=== PATIENT | female | born 1965 | race Caucasian/White ===

== ENCOUNTER 2017-02-05 11:57 | Observation (INO) | payer OTHER ==
[~2017-02-05] VITALS: Ht 165.1 cm; Wt 68.0 kg
[~2017-02-05 11:57] MED LIST: ALBU6.7H INH; ALBUTEROL INHALER INH; COQ1100C PO; FISH100020 PO; LEVO100T4 PO; RANI150 PO; TRAM50 PO
[2017-02-05 12:03] VITALS: BP 194/89; PULSE 94; RESP 22; TEMP 97.9; O2SAT 95
[2017-02-05 12:23] VITALS: BP 192/93; PULSE 80; RESP 18; O2SAT 98
[2017-02-05] MEDS ORDERED: SODIUM CHLOR 0.9% 1000 ML INJ 1,000 ML IV ONE (12:27)
[2017-02-05] MEDS ORDERED: SODIUM CHLORIDE 0.9% FLUSH 10 ML FLUSH IVF PRN (12:30)
[2017-02-05] MEDS ORDERED: MECLIZINE HCL 25 MG TAB PO ONE (12:30)
[2017-02-05 12:33] VITALS: BP_SYST 149; BP_SYST 152; BP_SYST 153; BP_DIAS 68; BP_DIAS 71; BP_DIAS 76; RESP 17; RESP 22; O2SAT 96
--- NOTE | 2017-02-05 12:39 | PD ---
HPI Chief Complaint: Dizziness Time Seen by Provider: 12:11 Travel History International Travel<30 days: No Contact w/Intl Traveler<30days: No Traveled to known affect area: No History of Present Illness HPI 52-year-old female presents to the emergency department for evaluation of dizziness, occipital headache. Patient states that she woke up this morning feeling fine. She drank her coffee and that started to feel dizzy around 9:30 this morning. Patient states that her daughter dropped off her grandson for her to watch him. She was driving her boyfriend to work when she felt very dizzy. She states that she pulled over and then felt slightly better and took her boyfriend to work and came home. The dizziness reoccurred. She states that she looked up some vertigo maneuvers and attempted these. She states the dizziness felt much better so she assumed it was vertigo. That time, she started to drive to [employer] to see another daughter. She felt okay at that time. However, the dizziness reoccurred. She states she fell unable to drive to the dizziness. Therefore, her bosses boyfriend brought him to her who brought her to the emergency department. The patient states that she is unsure if she could be having an anxiety attack, stroke, hyperthyroidism. She does report history of hypothyroidism and is on levothyroxine. She states that when she was on too much medication, she became real shaky which she feels at that time. However, the dizziness is new for her. She denies any history of stroke. She does have history of hyperlipidemia and is on Lipitor, hypothyroidism, current tobacco smoker. She denies a history of hypertension, ACS, CVA. Patient states that the symptoms were worse with movement, but now persistent even when laying down. She states the headache is 3/10 and do for her. She does state that she had 5-6 alcoholic drinks last night, but this is not abnormal for her when she is off of work. Patient is currently an [employer] WORKER. Patient states that while waiting for her boyfriend, she had an episode where her right leg and arm felt "funny", but his has resolved. Patient denies any chest pain or shortness of breath. No abdominal pain. No nausea, vomiting, diarrhea, constipation. PFSH Past Medical History Asthma: Yes Cancer: No Cardiac Catheterization: Yes Cardiovascular Problems: Yes (CHEST PAIN) High Cholesterol: Yes Diabetes: Yes Patient Takes Glucophage: No Diminished Hearing: No GERD: Yes Hepatitis: No Hiatal Hernia: Yes (GERD) Herniated Disk: Yes Hypertension: Yes Medical other: Yes (ARTHRITIS) Respiratory: Yes (ASTHMA) Shingles: Yes Thyroid Disease: Yes ?: Not Tubal Ligation: Yes Past Surgical History Abdominal Surgery: Yes (LEFT FEMORAL HERNIA REPAIR) Coronary Artery Bypass Graft: No Gynecologic Surgery: Yes (CONE BIOPSY; TUBAL LIGATION) Hysterectomy: Yes Pacemaker: No Thoracic Surgery: Yes (BREAST REDUCTION) Tonsillectomy: Yes (ADNOIDECTOMY) Other Surgery: Yes (BILAT BREAST REDUCTION) Social History Alcohol Use: Yes Tobacco Use: Yes Substance Use: No Allergies-Medications (Allergen,Severity, Reaction): Coded Allergies: Sulfa (Sulfonamide Antibiotics) (Unverified Allergy, Severe, 02/05/17) Reported Meds & Prescriptions Reported Meds & Active Scripts Active Ultram (Tramadol HCl) 50 Mg Tab 50 Mg PO Q4HPRN FOR PAIN Reported Proventil Hfa (Albuterol Sulfate) 6.7 Gm Aero 2 Puff INH Q4HPRN * SHAKE WELL BEFORE USE * Coq10 (Coenzyme Q10 (Ubidecarenone)) 100 Mg Cap 100 Mg PO DAILY Fish Oil (Nelson-3 Fatty Acids) 1,000 Mg Cap 1,000 Mg PO DAILY [Albuterol Inhaler] 2 Puff INH DIRECTED Zantac (Ranitidine HCl) 150 Mg Tab 150 Mg PO DIRECTED Levothyroxine Sodium (Generic) (Levothyroxine Sodium) 100 Mcg Tab 100 Mcg PO DAILY Review of Systems Except as stated in HPI: all other systems reviewed are Neg Physical Exam Narrative GENERAL: Well-nourished, well-developed female patient, afebrile. SKIN: Focused skin assessment warm/dry. HEAD: Normocephalic. Atraumatic. EYES: No scleral icterus. No injection or drainage. PERRLA. EOM intact. ENT: Mucosa pink and moist. No erythema or exudates. No uvular edema. No uvular , palatal, or tonsillar deviation. Airway patent. Nasal turbinates appear normal without nasal blood, purulent drainage or septal hematoma. Bilateral tympanic membranes are clear without erythema or perforation. NECK: Supple, trachea midline. No JVD or lymphadenopathy. CARDIOVASCULAR: Regular rate and rhythm without murmurs, gallops, or rubs. Bilateral radial and pedal pulses are 2+. RESPIRATORY: Breath sounds equal bilaterally. No accessory muscle use. Lungs sounds are clear to auscultation. GASTROINTESTINAL: Abdomen soft, non-tender, nondistended. MUSCULOSKELETAL: No cyanosis, or edema. Bilateral upper and lower extremity strength 5/5. All extremities are neurovascularly intact. BACK: Nontender without obvious deformity. No CVA tenderness. Data Data Last Documented VS Vital Signs Date Time Temp Pulse Resp B/P (MAP) Pulse Ox O2 Delivery O2 Flow Rate FiO2 02/05/17 12:33 (126) 96 Room Air 02/05/17 12:33 80 22 81 17 85 17 02/05/17 12:03 97.9 Orders Orders Electrocardiogram (02/05/17 12:27) Complete Blood Count With Diff (02/05/17 12:27) Comprehensive Metabolic Panel (02/05/17 12:27) Magnesium (Mg) (02/05/17 12:27) Ckmb (Isoenzyme) Profile (02/05/17 12:27) Troponin I (02/05/17 12:27) Act Partial Throm Time (Ptt) (02/05/17 12:27) Prothrombin Time / Inr (Pt) (02/05/17 12:27) Urinalysis - C+S If Indicated (02/05/17 12:27) Chest, Single Ap (02/05/17 12:27) Ct Brain W/O Iv Contrast(Rout) (02/05/17 12:27) Blood Glucose (02/05/17 12:27) Ecg Monitoring (02/05/17 12:27) Iv Access Insert/Monitor (02/05/17 12:27) Oximetry (02/05/17 12:27) Meclizine (Antivert) (02/05/17 12:30) Sodium Chloride 0.9% Flush (Ns Flush) (02/05/17 12:30) Sodium Chlor 0.9% 1000 Ml Inj (Ns 1000 M (02/05/17 12:27) Orthostatic Vital Signs (02/05/17 12:27) Thyroid Stimulating Hormone (02/05/17 12:27) Alcohol (Ethanol) (02/05/17 12:48) Mri Brain W&W/O Contrast (02/05/17 ) Mra Brain W/O Contrast (Cow) (02/05/17 ) Labs Laboratory Tests Test 02/05/17 12:30 White Blood Count 5.9 TH/MM3 Red Blood Count 4.17 MIL/MM3 Hemoglobin 13.4 GM/DL Hematocrit 38.8 % Mean Corpuscular Volume 93.1 FL Mean Corpuscular Hemoglobin 32.2 PG Mean Corpuscular Hemoglobin Concent 34.6 % Red Cell Distribution Width 13.1 % Platelet Count 283 TH/MM3 Mean Platelet Volume 6.8 FL Neutrophils (%) (Auto) 50.5 % Lymphocytes (%) (Auto) 32.8 % Monocytes (%) (Auto) 8.6 % Eosinophils (%) (Auto) 7.5 % Basophils (%) (Auto) 0.6 % Neutrophils # (Auto) 3.0 TH/MM3 Lymphocytes # (Auto) 1.9 TH/MM3 Monocytes # (Auto) 0.5 TH/MM3 Eosinophils # (Auto) 0.4 TH/MM3 Basophils # (Auto) 0.0 TH/MM3 CBC Comment DIFF FINAL Differential Comment Prothrombin Time 10.1 SEC Prothromb Time International Ratio 0.9 RATIO Activated Partial Thromboplast Time 27.6 SEC Blood Urea Nitrogen 15 MG/DL Creatinine 0.67 MG/DL Random Glucose 89 MG/DL Total Protein 7.4 GM/DL Albumin 3.9 GM/DL Calcium Level 9.1 MG/DL Magnesium Level 2.2 MG/DL Alkaline Phosphatase 84 U/L Aspartate Amino Transf (AST/SGOT) 17 U/L Alanine Aminotransferase (ALT/SGPT) 20 U/L Total Bilirubin 0.2 MG/DL Sodium Level 137 MEQ/L Potassium Level 4.0 MEQ/L Chloride Level 103 MEQ/L Carbon Dioxide Level 27.3 MEQ/L Anion Gap 7 MEQ/L Estimat Glomerular Filtration Rate 92 ML/MIN Total Creatine Kinase 73 U/L Troponin I LESS THAN 0.02 NG/ML Thyroid Stimulating Hormone 3rd Gen 4.670 uIU/ML Ethyl Alcohol Level LESS THAN 3 MG/DL MDM Medical Decision Making Medical Screen Exam Complete: Yes Emergency Medical Condition: Yes Medical Record Reviewed: Yes Interpretation(s) Last Impressions Head CT 02/05/17 1227 Signed Impressions: Service Date/Time: January 12:46 - CONCLUSION: Normal examination for a patient of this age. Idris Maguire MD Chest X-Ray 02/05/17 1227 Signed Impressions: Service Date/Time: January 13:11 - CONCLUSION: No acute disease. Idris Maguire MD Differential Diagnosis Vertigo versus intracranial abnormality versus CVA versus TIA versus electrolyte abnormality versus thyroid disease versus dehydration versus ACS Narrative Course 52-year-old female presents to the emergency department for evaluation of dizziness, headache, resolved episode of right arm and leg feeling "funny". Neurological exam shows no focal deficits. NIH stroke scale is 0. EKG, CBC, CMP, CK, troponin, magnesium, TSH, PTT, PT/INR, UA are ordered and pending. Chest x-ray and CT of the brain are ordered and pending. Orthostatic vital signs are ordered and pending. Patient is given normal saline 1 L IV bolus, meclizine 25 mg by mouth. EKG shows SR, HR 81, no acute ST changes. CBC shows no acute abnormalities. CMP shows no acute abnormality. CK is 73. Troponin is less than 0.02. Magnesium is 2.2. TSH is 4.670. Coags are unremarkable. UA is pending. Chest x-ray shows no acute disease. CT of the brain is unremarkable Orthostatic VS is negative for orthostatic hypotension. Patient took 2 hiram-seltzer this morning which contains 325 ASA each. I discussed the case with my attending physician, Dr. Tidwell, who recommends 23 hour observation. MRI of the brain with and without contrast and MRA of the brain are ordered and pending. Dr. Lopez accepted admission. Diagnosis Primary Impression: Dizziness Additional Impression: Headache Qualified Codes: R51 - Headache Admitting Information Admitting Physician Requests: Observation CarloDuaneCidna TITA Feb 05, 2017 12:39
[2017-02-05 12:52] LABS: BASOPHIL % 0.6 % (0.0-2.0); EOSINOPHIL # 0.4 TH/MM3 (0-0.4); EOSINOPHIL % 7.5 % (0.0-4.0); HEMATOCRIT 38.8 % (35.0-46.0); HEMO FLAGS DIFF FINAL; LYMPH % 32.8 % (9.0-44.0); LYMPHOCYTE # 1.9 TH/MM3 (1.0-4.8); MEAN CELL VOLUME 93.1 FL (80.0-100.0); MEAN CORPUSCULAR HEMOGLOBIN 32.2 PG (27.0-34.0); MEAN CORPUSCULAR HGB CONC 34.6 % (32.0-36.0); MONO % 8.6 % (0.0-8.0); NEUT % 50.5 % (16.0-70.0); PLATELET COUNT 283 TH/MM3 (150-450); RED BLOOD COUNT 4.17 MIL/MM3 (4.00-5.30); RED CELL DISTRIBUTION WIDTH 13.1 % (11.6-17.2); WHITE BLOOD COUNT 5.9 TH/MM3 (4.0-11.0)
[2017-02-05 13:01] LABS: APTT (PATIENT) 27.6 SEC (24.3-30.1); INTERNATIONAL NORMALIZED RATIO 0.9 RATIO; PROTHROMBIN TIME - PATIENT 10.1 SEC (9.8-11.6)
--- NOTE | 2017-02-05 13:11 | RADRPT ---
EXAM DATE/TIME: 02/05/2017 12:46 [facility] COMPARISON: No previous studies available for comparison. INDICATIONS : Severe dizziness today RADIATION DOSE: 56.83 CTDIvol (mGy) MEDICAL HISTORY : Hypertension. Cardiovascular disease Diabetes SURGICAL HISTORY : Hysterectomy. ENCOUNTER: Initial ACUITY: 1 day PAIN SCALE: 0/10 LOCATION: cranial TECHNIQUE: Multiple contiguous axial images were obtained of the head. Using automated exposure control and adj ustment of the mA and/or kV according to patient size, radiation dose was kept as low as reasonably a chievable to obtain optimal diagnostic quality images. DICOM format image data is available electro nically for review and comparison. FINDINGS: CEREBRUM: The ventricles are normal for age. No evidence of midline shift, mass lesion, hemorrhage or acute in farction. No extra-axial fluid collections are seen. POSTERIOR FOSSA: The cerebellum and brainstem are intact. The 4th ventricle is midline. The cerebellopontine angle i s unremarkable. EXTRACRANIAL: The visualized portion of the orbits is intact. SKULL: The calvaria is intact. No evidence of skull fracture. CONCLUSION: Normal examination for a patient of this age. Idris Maguire MD on February 05, 2017 at 13:09 Board Certified Radiologist. This report was verified electronically.
--- NOTE | 2017-02-05 13:16 | RADRPT ---
EXAM DATE/TIME: 02/05/2017 13:11 [facility] COMPARISON: No previous studies available for comparison. INDICATIONS : Dizzyness MEDICAL HISTORY : asthma SURGICAL HISTORY : None. ENCOUNTER: Initial ACUITY: 1 day PAIN SCORE: 0/10 LOCATION: Bilateral chest FINDINGS: A single view of the chest demonstrates the lungs to be symmetrically aerated without evidence of mas s, infiltrate or effusion. There is some hyperaeration of both lung garcía. The cardiomediastinal con tours are unremarkable. Osseous structures are intact. CONCLUSION: No acute disease. Idris Maguire MD on February 05, 2017 at 13:15 Board Certified Radiologist. This report was verified electronically.
[2017-02-05 13:19] LABS: ANION GAP 7 MEQ/L (5-15); BICARBONATE 27.3 MEQ/L (21.0-32.0); BLOOD UREA NITROGEN 15 MG/DL (7-18); CHLORIDE 103 MEQ/L (98-107); GLOMERULAR FILTRATION RATE 92 ML/MIN (>89); MAGNESIUM 2.2 MG/DL (1.5-2.5); SODIUM (NA) 137 MEQ/L (136-145)
[2017-02-05 13:21] LABS: ALT (GPT) 20 U/L (10-53)
[2017-02-05 13:30] LABS: ALKALINE PHOSPHATASE 84 U/L (45-117); AST (GOT) 17 U/L (15-37); CREATINE KINASE 73 U/L (26-192); TOTAL BILIRUBIN ADULT 0.2 MG/DL (0.2-1.0)
[2017-02-05 14:10] LABS: BLOOD, URINE NEG (NEG); COMMENT (UR) CULT NOT INDICATED; CULTURE IF INDICATED CULT NOT INDICATED; GLUCOSE,URINE NEG (NEG); KETONE, URINE NEG (NEG); NITRITE,URINE NEG (NEG); URINE COLOR LIGHT-YELLOW (YELLW/STRAW)
--- NOTE | 2017-02-05 14:40 | RADRPT ---
EXAM DATE/TIME: 02/05/2017 14:15 [facility] COMPARISON: No previous studies available for comparison. INDICATIONS : CVA. Right sided weakness. MEDICAL HISTORY : Hypothyroidism. Asthma. SURGICAL HISTORY : Hysterectomy. Tonsillectomy. Breast reduction and hernia repair. ENCOUNTER: Initial ACUITY: 1 day PAIN SCORE: 0/10 LOCATION: Head. Please note a normal MRA of the brain does not entirely exclude the possibility of a small aneurysm, nor the possibility of distal intracranial vessel disease. TECHNIQUE: 3D time of flight MRA was performed. Source images, multiplanar STS MIP, and 3D volume MIP reconstru ctions were reviewed. FINDINGS: Anterior circulation: Distal intracranial internal carotid arteries are patent with flow extending to the middle and anteri or cerebral arteries. There is no evidence for aneurysm, vessel truncation or stenosis, and no eviden ce for vascular malformation. Posterior circulation: Symmetric distal vertebral arteries with flow extending to basilar artery. There is no evidence for aneurysm, vessel truncation or stenosis, and no evidence for vascular malformation. CONCLUSION: 1. Unremarkable MRA examination of the brain. Specifically, no evidence for large vessel occlusion, s ignificant intracranial stenosis or aneurysm. Jovon Arriaza MD on February 05, 2017 at 14:35 Board Certified Radiologist. This report was verified electronically.
--- NOTE | 2017-02-05 14:46 | RADRPT ---
EXAM DATE/TIME: 02/05/2017 14:15 [facility] COMPARISON: CT BRAIN W/O CONTRAST, February 05, 2017, 12:46. INDICATIONS : CVA. Right sided weakness. MEDICAL HISTORY : Asthma. SURGICAL HISTORY : Hysterectomy. Tonsillectomy. Breast reduction. ENCOUNTER: Initial ACUITY: 1 day PAIN SCORE: 0/10 LOCATION: Head. TECHNIQUE: Multiplanar, multisequence MRI of the brain was performed without contrast. FINDINGS: CEREBRUM: The ventricles are normal. No evidence of midline shift, mass lesion, hemorrhage or acute infarction . No extraaxial fluid collections are seen. The pituitary gland and suprasellar cistern are normal in configuration. WHITE MATTER: No significant signal abnormalities are seen in the white matter. POSTERIOR FOSSA: The cerebellum and brainstem demonstrate no abnormality. The 4th ventricle is midline. The cerebello pontine angle is unremarkable. The cerebellar tonsils are normal in position. DIFFUSION IMAGING: No focal areas of restricted diffusion are seen. No evidence of acute infarction. EXTRACRANIAL: The visualized portions of the orbits and paranasal sinuses are unremarkable. CONCLUSION: Negative brain MRI without contrast. No abnormality is identified to explain the clinical symptoms an d there are no findings to indicate recent ischemia. Adonay Harvey MD on February 05, 2017 at 14:42 Board Certified Radiologist. This report was verified electronically.
--- NOTE | 2017-02-05 14:54 | HHI.HP ---
HPI Service [facility] Hospitalists Primary Care Physician Dorota Duff MD Admission Diagnosis dizziness, acute headache Chief Complaint: Dizziness Travel History International Travel<30 Days: No Contact w/Intl Traveler <30 Da: No Traveled to Known Affected Are: No History of Present Illness Ms. Shanks is a pleasant 52 y/o WF with hyperlipidemia, hypothyroidism, B12 deficiency, and GERD. Pt presented to the ED at [facility] on 02/05/17 with complaints of dizziness/lightheadedness. Pt reports that this morning she woke up feeling normal but then around 9:30Am she had a sensation like she felt lightheaded or "altered" and had a fullness sensation in the back of her head. She reports that she didn't feel dizziness like the room was spinning and there was no listing to one side. She felt a fullness sensation in the back of her neck and felt palpitations. The sensation lasted about an hour to an hour and a half. She tried doing some Tita maneuvers on her own at home which didn't seem to help much. She then tried to just relax and lay quietly and then had some relief. She left at 11AM to drive to [facility] to see her daughter for her birthday and while driving she felt this same sensation and pulled over into a gas station. She felt a slight tingling in the right side of her face and tingling in the right arm but there was no noted facial drooping. The tingling sensation lasted about 5 mins and then resolved. She also felt like she had a "thick tongue" and was having some sort of difficulty with talking. Pt waited at the gas station until her boyfriend arrived who drove her to the ED for further evaluation. In the ED she had a Head CT which was negative. Her labs and UA were essentially unrevealing. Her TSH was noted to be elevated at 4.670. Pts BP was significantly elevated in the ED but states that it is not normally that high. She feels the elevation was related to anxiety upon arrival to the ED. The BP has improved. Pt was given IVF and a dose of Meclizine in the ED. She is feeling overall better. Pt is being admitted for 24 hour observation and further workup to r/o TIA/CVA. Review of Systems Constitutional: COMPLAINS OF: Dizziness, DENIES: Diaphoretic episodes, Fever, Chills Eyes: DENIES: Vision loss Ears, nose, mouth, throat: DENIES: Hearing loss, Nasal discharge, Throat pain, Hoarseness, Running Nose Respiratory: DENIES: Shortness of breath Cardiovascular: COMPLAINS OF: Palpitations, DENIES: Chest pain Gastrointestinal: DENIES: Abdominal pain, Constipation, Diarrhea, Nausea, Vomiting Genitourinary: DENIES: Urinary incontinence, Urgency, Hematuria Musculoskeletal: COMPLAINS OF: Neck pain Integumentary: DENIES: Rash Neurologic: COMPLAINS OF: Paresthesias, Speech Problems, DENIES: Localized weakness, Poor Balance Psychiatric: DENIES: Confusion Past Family Social History Past Medical History Hypothyroidism Hyperlipidemia Hx of PVCs Asthma, rarely has to use inhalers GERD Hiatal hernia Hx of steroid induced psychosis B12 deficiency Past Surgical History IMELDA at L5-S1 Tonsillectomy Bilateral breast reduction Femoral hernia repair Tubal ligation Hysterectomy Reported Medications -Proventil Hfa (Albuterol Sulfate) 6.7 Gm Aero 2 Puff INH Q4HPRN * SHAKE WELL BEFORE USE * -Coq10 10 Mg PO DAILY -Fish Oil 1,000 Mg PO DAILY -Zantac 150 Mg PO DAILY NEEDED -Levothyroxine Sodium 100 Mcg PO DAILY on Mon,Wed,Th,Fri,Thu and 88mcg on e and Sat -B12 2500Mcg SL DAILY -Lipitor 10Mg PO -- Allergies: Coded Allergies: Sulfa (Sulfonamide Antibiotics) (Unverified Allergy, Severe, 02/05/17) Family History Mother with hx of CVA in her early 60's and has had CEA Father with hx of CAD and CT at age 54 Social History (+)Tobacco use, smoked for 10 quit for 16 years, smoke for 3, quit for 3, and started back recently, smoking on average (+)Alcohol use, drinks on her days off work, mixed drinks, pt reports she is a "moderate drinker" Denies any illicit drug use 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 HEENT: Atraumatic. Normocephalic. No temporal or scalp tenderness.No scleral icterus. Airway patent. NECK: Trachea midline, supple, nontender. CARDIO: Regular. RESP: CTA bilaterally. No wheezes, rales, or rhonchi. ABD: +BS, soft, non-tender, nondistended. EXT: Extremities without clubbing, cyanosis, or edema. NEURO: Awake and alert. Motor and sensory grossly within normal limits. Normal speech. Laboratory Laboratory Tests Test 02/05/17 12:30 02/05/17 13:20 White Blood Count 5.9 Red Blood Count 4.17 Hemoglobin 13.4 Hematocrit 38.8 Mean Corpuscular Volume 93.1 Mean Corpuscular Hemoglobin 32.2 Mean Corpuscular Hemoglobin Concent 34.6 Red Cell Distribution Width 13.1 Platelet Count 283 Mean Platelet Volume 6.8 Neutrophils (%) (Auto) 50.5 Lymphocytes (%) (Auto) 32.8 Monocytes (%) (Auto) 8.6 Eosinophils (%) (Auto) 7.5 Basophils (%) (Auto) 0.6 Neutrophils # (Auto) 3.0 Lymphocytes # (Auto) 1.9 Monocytes # (Auto) 0.5 Eosinophils # (Auto) 0.4 Basophils # (Auto) 0.0 CBC Comment DIFF FINAL Differential Comment Prothrombin Time 10.1 Prothromb Time International Ratio 0.9 Activated Partial Thromboplast Time 27.6 Blood Urea Nitrogen 15 Creatinine 0.67 Random Glucose 89 Total Protein 7.4 Albumin 3.9 Calcium Level 9.1 Magnesium Level 2.2 Alkaline Phosphatase 84 Aspartate Amino Transf (AST/SGOT) 17 Alanine Aminotransferase (ALT/SGPT) 20 Total Bilirubin 0.2 Sodium Level 137 Potassium Level 4.0 Chloride Level 103 Carbon Dioxide Level 27.3 Anion Gap 7 Estimat Glomerular Filtration Rate 92 Total Creatine Kinase 73 Troponin I LESS THAN 0.02 Thyroid Stimulating Hormone 3rd Gen 4.670 Ethyl Alcohol Level LESS THAN 3 Urine Color LIGHT-YELLOW Urine Turbidity CLEAR Urine pH 7.0 Urine Specific [place] 1.010 Urine Protein NEG Urine Glucose (UA) NEG Urine Ketones NEG Urine Occult Blood NEG Urine Nitrite NEG Urine Bilirubin NEG Urine Urobilinogen LESS THAN 2.0 Urine Leukocyte Esterase NEG Urine RBC 1 Urine WBC 1 Microscopic Urinalysis Comment CULT NOT INDICATED Result Diagram: 02/05/17 1230 02/05/17 1230 Imaging Last Impressions Head CT 02/05/17 1227 Signed Impressions: Service Date/Time: January 12:46 - CONCLUSION: Normal examination for a patient of this age. Idris Maguire MD Chest X-Ray 02/05/17 1227 Signed Impressions: Service Date/Time: January 13:11 - CONCLUSION: No acute disease. Idris Maguire MD Head Magnetic Resonance Angiography 02/05/17 0000 Signed Impressions: Service Date/Time: , February 05, 2017 14:15 - CONCLUSION: 1. Unremarkable MRA examination of the brain. Specifically, no evidence for large vessel occlusion, significant intracranial stenosis or aneurysm. Jovon Arriaza MD Brain MRI 02/05/17 0000 Signed Impressions: Service Date/Time: January 14:15 - CONCLUSION: Negative brain MRI without contrast. No abnormality is identified to explain the clinical symptoms and there are no findings to indicate recent ischemia. Adonay Harvey MD Septic Shock Reassessment Heart: Regular rate and rhythm Lungs: Clear Skin: Warm Caprini VTE Risk Assessment Caprini VTE Risk Assessment: No/Low Risk (score <= 1) Caprini Risk Assessment Model Point Value = 1 Point Value = 2 Point Value = 3 Point Value = 5 Age 41-60 Minor surgery BMI > 25 kg/m2 Swollen legs Varicose veins or History of unexplained or recurrent spontaneous Oral contraceptives or hormone replacement Sepsis (< 1 month) Serious lung disease, including pneumonia (< 1 month) Abnormal pulmonary function Acute myocardial infarction Congestive heart failure (< 1 month) History of inflammatory bowel disease Medical patient at bed rest Age 61-74 Arthroscopic surgery Major open surgery (> 45 min) Laparoscopic surgery (> 45 min) Malignancy Confined to bed (> 72 hours) Immobilizing plaster cast Central venous access Age >= 75 History of VTE Family history of VTE Factor V Leiden Prothrombin [id number] Lupus anticoagulant Anticardiolipin antibodies Elevated serum homocysteine Heparin-induced thrombocytopenia Other congenital or acquired thrombophilia Stroke (< 1 month) Elective arthroplasty Hip, pelvis, or leg fracture Acute spinal cord injury (< 1 month) Prophylaxis Regimen Total Risk Factor Score Risk Level Prophylaxis Regimen 0-1 Low Early ambulation 2 Moderate Order ONE of the following: *Sequential Compression Device (SCD) *Heparin 5000 units SQ BID 3-4 Higher Order ONE of the following medications: *Heparin 5000 units SQ TID *Enoxaparin/Lovenox 40 mg SQ daily (WT < 150 kg, CrCl > 30 mL/min) *Enoxaparin/Lovenox 30 mg SQ daily (WT < 150 kg, CrCl > 10-29 mL/min) *Enoxaparin/Lovenox 30 mg SQ BID (WT < 150 kg, CrCl > 30 mL/min) AND/OR *Sequential Compression Device (SCD) 5 or more Highest Order ONE of the following medications: *Heparin 5000 units SQ TID (Preferred with Epidurals) *Enoxaparin/Lovenox 40 mg SQ daily (WT < 150 kg, CrCl > 30 mL/min) *Enoxaparin/Lovenox 30 mg SQ daily (WT < 150 kg, CrCl > 10-29 mL/min) *Enoxaparin/Lovenox 30 mg SQ BID (WT < 150 kg, CrCl > 30 mL/min) AND *Sequential Compression Device (SCD) Assessment and Plan Problem List: (1) Dizziness ICD Codes: R42 - Dizziness and giddiness Status: Acute Plan: - Pt is a 52 y/o WF with hyperlipidemia, hypothyroidism, B12 deficiency, and GERD. - Pt presented to the ED at [facility] on 02/05/17 with complaints of dizziness/ lightheadedness that began around 9:30AM this morning when she developed a sensation like she felt lightheaded or "altered" and had a fullness sensation in the back of her head/neck and felt palpitations. The sensation lasted about an hour to an hour and a half and then resolved. Then at 11AM she was driving and felt this same sensation and pulled over into a gas station. She then felt a slight tingling in the right side of her face and tingling in the right arm but there was no noted facial drooping. The tingling sensation lasted about 5 mins and then resolved. She also felt like she had a "thick tongue" and was having some sort of difficulty with talking. - In the ED she had a Head CT which was negative. - Her CBC, CMP and UA were essentially unrevealing. Her TSH was noted to be elevated at 4.670. - Pts BP was significantly elevated in the ED but states that it is not normally that high. She feels the elevation was related to anxiety upon arrival to the ED. The BP has improved. Pts orthostatic vital signs were negative - Pt was given IVF and a dose of Meclizine in the ED. She is feeling overall better. Etiology for the pts symptoms are unclear - MRI/MRA brain were unremarkable - Check Carotid US - Check Free T4, B12 and Folate levels - Telemetry - Holter Monitor - Give ASA - Meclizine PRN - Ambulate as tolerated - Consult Neurology for any further recommendations - Supportive care - DVT prophylaxis with SCDs (2) Headache ICD Codes: R51 - Headache Status: Acute Plan: - See above (3) Hypothyroidism ICD Codes: E03.9 - Hypothyroidism, unspecified Status: Chronic Plan: - Home meds resumed (4) Hyperlipidemia ICD Codes: E78.5 - Hyperlipidemia, unspecified Status: Chronic Plan: - Home meds resumed (5) GERD (gastroesophageal reflux disease) ICD Codes: K21.9 - Gastro-esophageal reflux disease without esophagitis Status: Chronic Plan: - Zantac PRN Problem Qualifiers (1) Headache: Qualified Codes: R51 - Headache Nena Vanegas Feb 05, 2017 14:54
--- NOTE | 2017-02-05 15:16 | RADRPT ---
EXAM DATE/TIME: 02/05/2017 14:42 [facility] COMPARISON: No previous studies available for comparison. INDICATIONS : Dizziness. MEDICAL HISTORY : Hypercholesterolemia. Hernia, hiatal. Arthritis. Thyroid disease. Chest pain. HTN. Asthma. GERD. [place] iated disk. Diabetes. Shingles. SURGICAL HISTORY : Tubal ligation. Hysterectomy. Adenoidectomy. Cardiac cath. Breast reduction. Left femoral hernia r epair. Cone biopsy. ENCOUNTER: Initial ACUITY: 1 day PAIN SCORE: 0/10 LOCATION: Bilateral neck PEAK SYSTOLIC VELOCITIES (cm/sec): ICA/CCA RATIO: Right: 1.1 Left: 1.3 ICA: Right: 85 Left: 119 CCA: Right: 79 Left: 93 ECA: Right: 87 Left: 111 VERTEBRAL: Right: 74 antegrade Left: 69 antegrade Elevated flow velocities and ICA/CCA ratios have been found to correlate with increased degrees of vessel stenosis, calculated as percentage of diameter relative to a normal segment of distal ICA/CCA FINDINGS: RIGHT CAROTID: No significant stenosis is visualized. The waveforms are within normal limits. LEFT CAROTID: No significant stenosis is visualized. The waveforms are within normal limits. VERTEBRAL ARTERIES: Antegrade flow is seen in both vertebral arteries. MISCELLANEOUS: None. CONCLUSION: No significant atherosclerotic disease or stenosis is present within either internal artery. Adonay Harvey MD on February 05, 2017 at 15:13 Board Certified Radiologist. This report was verified electronically.
[2017-02-05] MEDS ORDERED: LEVO88TA2 PO (15:34)
[2017-02-05] MEDS ORDERED: ONDANSETRON HCL 4 MG/2 ML VIAL IV PRN (15:45)
[2017-02-05] MEDS ORDERED: ACETAMINOPHEN 325 MG TAB PO PRN (15:45)
[2017-02-05 16:00] VITALS: BP 148/68; PULSE 68; RESP 18; TEMP 97.9; O2SAT 97
[2017-02-05] MEDS ORDERED: MECLIZINE HCL 25 MG TAB PO PRN (16:00)
[2017-02-05] MEDS ORDERED: LIPI10TA PO (16:04)
[2017-02-05] MEDS ORDERED: ALBUTEROL SULFATE 90 MCG/ACT HFA 8 GM INHALER INH PRN (16:15)
[2017-02-05] MEDS ORDERED: FAMOTIDINE 20 MG TAB PO PRN (17:30)
[2017-02-05] MEDS: ASPIRIN EC 81 MG TABEC PO SCH (18:06)
[2017-02-05 19:21] VITALS: BP 125/57; PULSE 74; RESP 15; TEMP 98.2; O2SAT 97
--- NOTE | 2017-02-05 20:32 | RADRPT ---
EXAM DATE/TIME: 02/05/2017 19:57 [facility] COMPARISON: MRI BRAIN W/O CONTRAST, February 05, 2017, 14:15. INDICATIONS : Cervical spondylosis. MEDICAL HISTORY : Hypothyroidism. Asthma. SURGICAL HISTORY : Tonsillectomy. Hysterectomy. Breast reduction and hernia repair. ENCOUNTER: Initial ACUITY: 1 day PAIN SCORE: 0/10 LOCATION: Neck. TECHNIQUE: Multiplanar, multisequence MRI examination of the cervical spine was performed. FINDINGS: VERTEBRAE: Normal vertebral body height. Homogeneous marrow signal. ALIGNMENT: No evidence of subluxation. CORD: Normal configuration and signal. POST FOSSA: The cerebellar tonsils are normal in position. C2-C3: The thecal sac has a normal configuration. There is no evidence of disc herniation or spinal canal s tenosis. The neural foramina are patent bilaterally. C3-C4: The thecal sac has a normal configuration. There is no evidence of disc herniation or spinal canal s tenosis. The neural foramina are patent bilaterally. C4-C5: The thecal sac has a normal configuration. There is no evidence of disc herniation or spinal canal s tenosis. The neural foramina are patent bilaterally. C5-C6: The thecal sac has a normal configuration. The disc space is minimally narrowed with on sagittal imag es a minimal central disc bulge without spinal stenosis or effacement of the cord The neural foramin a are patent bilaterally. C6-C7: The thecal sac has a normal configuration. There is no evidence of disc herniation or spinal canal s tenosis. The neural foramina are patent bilaterally. C7-T1: The thecal sac has a normal configuration. There is no evidence of disc herniation or spinal canal s tenosis. The neural foramina are patent bilaterally. CONCLUSION: Degenerative disease C5-6 narrow disc space with minimal central disc bulge. No evide nce of spinal stenosis, neural foraminal encroachment or cord effacement Chapito Ibarra MD on February 05, 2017 at 20:27 Board Certified Radiologist. This report was verified electronically.
--- NOTE | 2017-02-05 21:05 | MB ---
cc: TIFFANY LOPES DATE OF CONSULTATION 02/05/17 REASON FOR CONSULTATION Headache, dizziness HISTORY OF PRESENT ILLNESS Ms. Menon is a very nice 52-year old female previously healthy until this morning. She was driving her car, suddenly felt an unusual feeling in the back of her head as though there was something "inside of her brain". It was a pressure feeling. She felt somewhat unsteady. She became very anxious afterwards, developed palpitations afterwards. Episode lasted an hour and a half or so. She had some lightheadedness as well. She went into a convenience store and sat down, then felt generally tremulous. She feels better now but not back to normal. She denied any focal weakness or numbness, thought she might have a "thick tongue". PAST MEDICAL HISTORY 1. Hypothyroidism, 2. Hyperlipidemia, 3. History of PVCs 4. Asthma. 5. Gastroesophageal reflux disease 6. Hiatal hernia 7. History of steroid induced psychosis 8. B12 deficiency 9. Epidural steroid injection L5-S1 10. Femoral hernia repair, 11. Bilateral breast reduction surgery MEDICATIONS At home 1. Proventil 2. Coenzyme Q10 3. Fish oil 4. Zantac. 5. Levothyroxine 6. B12 7. Lipitor. ALLERGIES SULFA NEUROLOGIC EXAMINATION Blood pressure is 149/68 supine, 153/76 standing, pulse is 80, respirations 22, temperature 97 degrees. Higher cortical functions normal. Cranial nerves II-XII are normal. Motor exam is normal with no focal weakness. Reflexes are symmetric. IMAGING STUDIES MRI brain is normal. MRA of the brain is within normal limits. Carotid ultrasound within normal limits. No evidence of any significant stenosis. CT brain is normal. LABORATORY DATA White count 5900, hemoglobin 13.4, hematocrit 38%, platelet count 283,000, PT 10.1, INR 0.9, APTT 27.6. Sodium is 137, potassium four, chloride 103, CO2 27, BUN is 15, creatinine 0.67, glucose 89, AST 17, ALT is 20, TSH 4.67. IMPRESSION Possible cervical spondylosis with vertigo, occipital neuralgia. There is no evidence of stroke on the brain MRI. RECOMMENDATIONS MRI cervical spine. MD MUNA Figueroa/ /6:36 PM /8:44 PM
[2017-02-06 00:02] VITALS: BP 121/58; PULSE 73; RESP 15; TEMP 98.1; O2SAT 95
[2017-02-06 03:54] VITALS: PULSE 66
[2017-02-06 04:19] VITALS: BP 145/76; PULSE 63; RESP 15; TEMP 98.1; O2SAT 99
[2017-02-06] MEDS ORDERED: LEVOTHYROXINE SODIUM 100 MCG TAB PO SCH (06:00)
--- NOTE | 2017-02-06 08:31 | HHI.PR ---
Subjective Remarks Pt reports that she is feeling back to her "normal self" this morning and wants to go home. Telemetry with NSR, no events overnight. She had the Holter Monitor placed but this was removed for the cervical MRI last night and it was not placed back on and the pt declines having it placed back on this morning. Objective Vitals Vital Signs Date Time Temp Pulse Resp B/P (MAP) Pulse Ox O2 Delivery O2 Flow Rate FiO2 02/06/17 04:19 98.1 63 15 145/76 (99) 99 02/06/17 03:54 66 02/06/17 00:02 98.1 73 15 121/58 (79) 95 02/05/17 19:21 98.2 74 15 125/57 (79) 97 02/05/17 16:00 97.9 68 18 148/68 (94) 97 02/05/17 15:56 02/05/17 12:33 (126) 96 Room Air 02/05/17 12:33 80 22 149/68 (95) 81 17 152/71 (98) 85 17 153/76 (101) 02/05/17 12:25 80 18 98 Room Air 02/05/17 12:23 80 18 192/93 (126) 98 Room Air 02/05/17 12:03 97.9 94 22 194/89 (124) 95 Result Diagram: 02/05/17 1230 02/05/17 1230 Other Results Laboratory Tests Test 02/05/17 12:29 02/05/17 12:30 02/05/17 13:20 Vitamin B12 Level 1355 PG/ML Folate 13.7 NG/ML Free Thyroxine 1.10 NG/DL White Blood Count 5.9 TH/MM3 Red Blood Count 4.17 MIL/MM3 Hemoglobin 13.4 GM/DL Hematocrit 38.8 % Mean Corpuscular Volume 93.1 FL Mean Corpuscular Hemoglobin 32.2 PG Mean Corpuscular Hemoglobin Concent 34.6 % Red Cell Distribution Width 13.1 % Platelet Count 283 TH/MM3 Mean Platelet Volume 6.8 FL Neutrophils (%) (Auto) 50.5 % Lymphocytes (%) (Auto) 32.8 % Monocytes (%) (Auto) 8.6 % Eosinophils (%) (Auto) 7.5 % Basophils (%) (Auto) 0.6 % Neutrophils # (Auto) 3.0 TH/MM3 Lymphocytes # (Auto) 1.9 TH/MM3 Monocytes # (Auto) 0.5 TH/MM3 Eosinophils # (Auto) 0.4 TH/MM3 Basophils # (Auto) 0.0 TH/MM3 CBC Comment DIFF FINAL Differential Comment Prothrombin Time 10.1 SEC Prothromb Time International Ratio 0.9 RATIO Activated Partial Thromboplast Time 27.6 SEC Blood Urea Nitrogen 15 MG/DL Creatinine 0.67 MG/DL Random Glucose 89 MG/DL Total Protein 7.4 GM/DL Albumin 3.9 GM/DL Calcium Level 9.1 MG/DL Magnesium Level 2.2 MG/DL Alkaline Phosphatase 84 U/L Aspartate Amino Transf (AST/SGOT) 17 U/L Alanine Aminotransferase (ALT/SGPT) 20 U/L Total Bilirubin 0.2 MG/DL Sodium Level 137 MEQ/L Potassium Level 4.0 MEQ/L Chloride Level 103 MEQ/L Carbon Dioxide Level 27.3 MEQ/L Anion Gap 7 MEQ/L Estimat Glomerular Filtration Rate 92 ML/MIN Total Creatine Kinase 73 U/L Troponin I LESS THAN 0.02 NG/ML Thyroid Stimulating Hormone 3rd Gen 4.670 uIU/ML Ethyl Alcohol Level LESS THAN 3 MG/DL Urine Color LIGHT-YELLOW Urine Turbidity CLEAR Urine pH 7.0 Urine Specific [place] 1.010 Urine Protein NEG mg/dL Urine Glucose (UA) NEG mg/dL Urine Ketones NEG mg/dL Urine Occult Blood NEG Urine Nitrite NEG Urine Bilirubin NEG Urine Urobilinogen LESS THAN 2.0 MG/DL Urine Leukocyte Esterase NEG Urine RBC 1 /hpf Urine WBC 1 /hpf Microscopic Urinalysis Comment CULT NOT INDICATED Imaging Last Impressions Head CT 02/05/171226 Signed Impressions: Service Date/Time: January 12:46 - CONCLUSION: Normal examination for a patient of this age. Idris Maguire MD Chest X-Ray 02/05/171226 Signed Impressions: Service Date/Time: January 13:11 - CONCLUSION: No acute disease. Idris Maguire MD Head Magnetic Resonance Angiography 02/05/17 0000 Signed Impressions: Service Date/Time: January 14:15 - CONCLUSION: 1. Unremarkable MRA examination of the brain. Specifically, no evidence for large vessel occlusion, significant intracranial stenosis or aneurysm. Jovon Arriaza MD Cervical Spine MRI 02/05/17 0000 Signed Impressions: Service Date/Time: January 19:57 - CONCLUSION: Degenerative disease C5-6 narrow disc space with minimal central disc bulge. No evidence of spinal stenosis, neural foraminal encroachment or cord effacement Chapito Ibarra MD Carotid Artery Ultrasound 02/05/17 0000 Signed Impressions: Service Date/Time: January 14:42 - CONCLUSION: No significant atherosclerotic disease or stenosis is present within either internal artery. Adonay Harvey MD Brain MRI 02/05/17 0000 Signed Impressions: Service Date/Time: January 14:15 - CONCLUSION: Negative brain MRI without contrast. No abnormality is identified to explain the clinical symptoms and there are no findings to indicate recent ischemia. Adonay Harvey MD Objective Remarks General: NAD, AAOx3 Chest: CTA Cardiac: Regular Abd: +BS, soft ND/NT Ext: No edema A/P Problem List: (1) Dizziness ICD Codes: R42 - Dizziness and giddiness Status: Acute Plan: - Pt is a 52 y/o WF with hyperlipidemia, hypothyroidism, B12 deficiency, and GERD. - Pt presented to the ED at [facility] on 02/05/17 with complaints of dizziness/ lightheadedness that began around 9:30AM this morning when she developed a sensation like she felt lightheaded or "altered" and had a fullness sensation in the back of her head/neck and felt palpitations. The sensation lasted about an hour to an hour and a half and then resolved. Then at 11AM she was driving and felt this same sensation and pulled over into a gas station. She then felt a slight tingling in the right side of her face and tingling in the right arm but there was no noted facial drooping. The tingling sensation lasted about 5 mins and then resolved. She also felt like she had a "thick tongue" and was having some sort of difficulty with talking. - In the ED she had a Head CT which was negative. - Her CBC, CMP and UA were essentially unrevealing. Her TSH was noted to be elevated at 4.670. - Pts BP was significantly elevated in the ED but states that it is not normally that high. She feels the elevation was related to anxiety upon arrival to the ED. The BP has improved. Pts orthostatic vital signs were negative - Pt was given IVF and a dose of Meclizine in the ED. - MRI/MRA brain were unremarkable - Carotid US (02/05) --> No significant atherosclerotic disease or stenosis is present within either internal artery. - Cervical Spine MRI (02/05) --> Degenerative disease C5-6 narrow disc space with minimal central disc bulge. No evidence of spinal stenosis, neural foraminal encroachment or cord effacement - Free T4 was 1.10, B12 was elevated at 1355 and Folate level was 13.7 - Telemetry with NSR, no events overnight - Holter Monitor was removed after 2 hours for the MRI and pt declines its replacement. - Cont. ASA - Meclizine PRN - Ambulate as tolerated - Appreciate Neurology consultation - She is feeling overall better. Etiology for the pts symptoms are unclear but workup has been negative for CVA. She does report that she has been having a lot of issues with her allergies the last few weeks and has intermittently been taking Claritin. Yesterday she had been having a lot of sinus congestion and sneezing and did take a Claritin yesterday morning. - We will have the pt followup with her PCP, Dr. Duff, in 1 week. - She will followup with Neurology, Dr. Mills, in 2 weeks - Pt will continue on ASA 81mg po daily (2) Headache ICD Codes: R51 - Headache Status: Acute Plan: - See above (3) Hypothyroidism ICD Codes: E03.9 - Hypothyroidism, unspecified Status: Chronic Plan: - Home meds resumed (4) Hyperlipidemia ICD Codes: E78.5 - Hyperlipidemia, unspecified Status: Chronic Plan: - Home meds resumed (5) GERD (gastroesophageal reflux disease) ICD Codes: K21.9 - Gastro-esophageal reflux disease without esophagitis Status: Chronic Plan: - Zantac PRN Problem Qualifiers (1) Headache: Qualified Codes: R51 - Headache Nena Vanegas Feb 06, 2017 08:31
[2017-02-06] MEDS ORDERED: ASPI-99 PO (08:32)
[2017-02-06] MEDS ORDERED: MECL1TAB42 PO (08:32)
--- NOTE | 2017-02-06 08:33 | HHI.DCPOC ---
Discharge Care Plan Diagnosis: (1) Hyperlipidemia (2) Hypothyroidism (3) GERD (gastroesophageal reflux disease) (4) Dizziness (5) Headache Goals to Promote Your Health * To prevent worsening of your condition and complications * To maintain your health at the optimal level Directions to Meet Your Goals Take your medications as prescribed Follow your dietary instruction Follow activity as directed Keep your appointments as scheduled Take your immunizations and boosters as scheduled If your symptoms worsen call your PCP, if no PCP go to Urgent Care Center or Emergency Room Smoking is Dangerous to Your Health. Avoid second hand smoke Call the 24-hour hour crisis hotline for domestic abuse at Nena Vanegas Feb 06, 2017 08:33
[2017-02-06 08:40] VITALS: BP 166/83; PULSE 74; RESP 18; TEMP 98.6; O2SAT 97
[2017-02-06] MEDS ORDERED: NON-FORMULARY DRUG (Omega-3 Fatty Acids (Fish Oil) 1,000 MG) PO SCH (09:00)
[2017-02-06] MEDS ORDERED: ATORVASTATIN 10 MG TAB PO SCH (09:00)
[2017-02-06] MEDS: ASPIRIN EC 81 MG TABEC PO SCH (09:04)
--- NOTE | 2017-02-06 22:03 | EKG ---
Date Performed: 02/05/2017 Time Performed: 12:19:45 PTAGE: 52 years EKG: Sinus rhythm NONSPECIFIC T-WAVE ABNORMALITY BORDERLINE ECG NO PREVIOUS TRACING DOCTOR: Simone Redd Interpretating Date/Time 02/06/2017 21:42:29
[2017-02-07] MEDS ORDERED: LEVOTHYROXINE SODIUM 88 MCG TAB PO SCH ×2 (06:00→16:15)
== END 2017-02-06 11:56 | disposition home or self-care (01) ==
LOC: NEPE 11:57 → NEDA 14:03 → NEPHCDU 16:05
PROVIDERS: ADMIT Hospitalist; ATTEND Hospitalist
DX: R42 Dizziness and giddiness (principal); E78.5 Hyperlipidemia, unspecified; E03.9 Hypothyroidism, unspecified; R51 Headache; J45.909 Unspecified asthma, uncomplicated; E78.00 Pure hypercholesterolemia, unspecified; E11.9 Type 2 diabetes mellitus without complications; K21.9 Gastro-esophageal reflux disease without esophagitis; K44.9 Diaphragmatic hernia without obstruction or gangrene; I10 Essential (primary) hypertension; R07.9 Chest pain, unspecified; M19.90 Unspecified osteoarthritis, unspecified site; B02.9 Zoster without complications; E53.8 Deficiency of other specified B group vitamins; I49.3 Ventricular premature depolarization; R00.2 Palpitations; R20.2 Paresthesia of skin; R94.31 Abnormal electrocardiogram [ECG] [EKG]; R53.1 Weakness
CPT/HCPCS: 70450; 70544; 70551; 71010; 72141; 80053; 80307; 81001; 82550; 82607; 82746; 83735; 84439; 84443; 84484; 85025; 85610; 85730; 93005; 93880; 97161; 99285; G0378; G8987; G8988; G8989; J7030

== ENCOUNTER 2017-03-07 12:06 | Emergency (ER) | payer OTHER ==
[~2017-03-07 12:06] MED LIST changes: -ALBUTEROL INHALER INH; +ASPI1TAB56 PO; +LEVO88TA2 PO; +LIPI10TA PO; +MECL1TAB42 PO
[2017-03-07 12:08] VITALS: BP 170/81; PULSE 70; RESP 16; TEMP 97.9; O2SAT 99
[2017-03-07] MEDS ORDERED: KETOROLAC TROMETHAMINE 30 MG/ML (IVP) VIAL IV PUSH ONE (12:30)
--- NOTE | 2017-03-07 12:30 | PD ---
HPI Chief Complaint: abdominal pain Time Seen by Provider: 12:20 Travel History International Travel<30 days: No Contact w/Intl Traveler<30days: No Traveled to known affect area: No History of Present Illness HPI This is a 52-year-old female who presents for evaluation of abdominal pain. Symptoms started 10 days ago. The patient is a sharp/burning pain in the left lower quadrant of the abdomen which is constant, radiates some into the left buttocks, worse with movement. She has been using [id number] NSAIDs but her symptoms have worsened which prompted evaluation. Denies nausea, vomiting, diarrhea, constipation, fevers, dysuria. She does report a history of diverticulosis, no episodes of diverticulitis in the past. She also reports a history of femoral hernia with mesh placement in 2005, but she has never had pain like this before. She has no other complaints. PFSH Past Medical History Hx Anticoagulant Therapy: No Asthma: Yes Blood Disorders: No Anxiety: No Depression: No Heart Rhythm Problems: No Cancer: No Cardiac Catheterization: Yes Cardiovascular Problems: No High Cholesterol: Yes Chemotherapy: No Chest Pain: No Congestive Heart Failure: No COPD: No Cerebrovascular Accident: No Diabetes: No Diminished Hearing: No Endocrine: Yes (HYPOTHYROIDISM) GERD: Yes Genitourinary: No Hepatitis: No Hiatal Hernia: Yes (GERD) Herniated Disk: Yes Hypertension: Yes Immune Disorder: No Musculoskeletal: No Neurologic: No Psychiatric: No Reproductive: No Respiratory: No Radiation Therapy: No Shingles: Yes Sleep Apnea: No Thyroid Disease: Yes ?: Unknown Tubal Ligation: Yes Past Surgical History Abdominal Surgery: Yes (LEFT FEMORAL HERNIA REPAIR) Coronary Artery Bypass Graft: No Gynecologic Surgery: Yes (CONE BIOPSY; TUBAL LIGATION) Hysterectomy: Yes Pacemaker: No Thoracic Surgery: Yes (BREAST REDUCTION) Tonsillectomy: Yes (ADNOIDECTOMY) Other Surgery: Yes (BILAT BREAST REDUCTION) Social History Alcohol Use: Yes Tobacco Use: Yes Substance Use: No Allergies-Medications (Allergen,Severity, Reaction): Coded Allergies: Sulfa (Sulfonamide Antibiotics) (Verified Allergy, Severe, rash, 03/07/17) Reported Meds & Prescriptions Reported Meds & Active Scripts Active Lipitor (Atorvastatin Calcium) 10 Mg Tab 10 Mg PO HSONMOWEFR Reported Levothyroxine (Levothyroxine Sodium) 88 Mcg Tab 88 Mcg PO TUSA Review of Systems Except as stated in HPI: all other systems reviewed are Neg Physical Exam Narrative GENERAL: Well-developed well-nourished female in no acute distress SKIN: Warm and dry. HEAD: Atraumatic. Normocephalic. EYES: Pupils equal and round. No scleral icterus. No injection or drainage. ENT: No nasal bleeding or discharge. Mucous membranes pink and moist. NECK: Trachea midline. No JVD. CARDIOVASCULAR: Regular rate and rhythm. No murmur appreciated. RESPIRATORY: No accessory muscle use. Clear to auscultation. Breath sounds equal bilaterally. GASTROINTESTINAL: Abdomen soft, focal left lower quadrant tenderness without guarding, no CVA tenderness, normal active bowel sounds in all 4 quadrants. MUSCULOSKELETAL: No obvious deformities. No clubbing. No cyanosis. No edema. NEUROLOGICAL: Awake and alert. No obvious cranial nerve deficits. Motor grossly within normal limits. Normal speech. PSYCHIATRIC: Appropriate mood and affect; insight and judgment normal. Data Data Last Documented VS Vital Signs Date Time Temp Pulse Resp B/P (MAP) Pulse Ox O2 Delivery O2 Flow Rate FiO2 03/07/17 12:50 17 03/07/17 12:08 97.9 70 170/81 (110) 99 Room Air Orders Orders Complete Blood Count With Diff (03/07/17 12:28) Comprehensive Metabolic Panel (03/07/17 12:28) Lipase (03/07/17 12:28) Urinalysis - C+S If Indicated (03/07/17 12:28) Ct Abd/Pel W Iv Contrast(Rout) (03/07/17 12:28) Iv Access Insert/Monitor (03/07/17 12:28) Ketorolac Inj (Toradol Inj) (03/07/17 12:30) Iohexol 350 Inj (Omnipaque 350 Inj) (03/07/17 13:19) Ed Discharge Order (03/07/17 13:58) Labs Laboratory Tests Test 03/07/17 12:50 White Blood Count 5.8 TH/MM3 Red Blood Count 4.31 MIL/MM3 Hemoglobin 14.1 GM/DL Hematocrit 40.8 % Mean Corpuscular Volume 94.7 FL Mean Corpuscular Hemoglobin 32.7 PG Mean Corpuscular Hemoglobin Concent 34.5 % Red Cell Distribution Width 13.1 % Platelet Count 282 TH/MM3 Mean Platelet Volume 7.1 FL Neutrophils (%) (Auto) 53.3 % Lymphocytes (%) (Auto) 29.7 % Monocytes (%) (Auto) 8.9 % Eosinophils (%) (Auto) 7.5 % Basophils (%) (Auto) 0.6 % Neutrophils # (Auto) 3.1 TH/MM3 Lymphocytes # (Auto) 1.7 TH/MM3 Monocytes # (Auto) 0.5 TH/MM3 Eosinophils # (Auto) 0.4 TH/MM3 Basophils # (Auto) 0.0 TH/MM3 CBC Comment DIFF FINAL Differential Comment Urine Color YELLOW Urine Turbidity CLEAR Urine pH 7.0 Urine Specific [place] 1.014 Urine Protein NEG mg/dL Urine Glucose (UA) NEG mg/dL Urine Ketones NEG mg/dL Urine Occult Blood NEG Urine Nitrite NEG Urine Bilirubin NEG Urine Urobilinogen LESS THAN 2.0 MG/DL Urine Leukocyte Esterase NEG Urine RBC 0-3 /hpf Urine Squamous Epithelial Cells 0-5 /hpf Microscopic Urinalysis Comment CULT NOT INDICATED Blood Urea Nitrogen 14 MG/DL Creatinine 0.72 MG/DL Random Glucose 88 MG/DL Total Protein 7.6 GM/DL Albumin 4.0 GM/DL Calcium Level 8.8 MG/DL Alkaline Phosphatase 84 U/L Aspartate Amino Transf (AST/SGOT) 20 U/L Alanine Aminotransferase (ALT/SGPT) 27 U/L Total Bilirubin 0.2 MG/DL Sodium Level 140 MEQ/L Potassium Level 4.1 MEQ/L Chloride Level 104 MEQ/L Carbon Dioxide Level 30.2 MEQ/L Anion Gap 6 MEQ/L Estimat Glomerular Filtration Rate 85 ML/MIN Lipase 142 U/L [facility] Medical Decision Making Medical Screen Exam Complete: Yes Emergency Medical Condition: Yes Medical Record Reviewed: Yes Differential Diagnosis Diverticulitis, mesh nerve entrapment, radiculopathy, colitis Narrative Course Plan is for basic lab work, urinalysis, CT of the abdomen and pelvis per the patient was given Toradol for pain control. The patient's lab work has been reviewed and found to be unremarkable. CT of the abdomen reveals no acute abnormalities. At this point, plan be to have the patient follow up with her primary care physician. She declines any prescribed pain medication. Diagnosis Primary Impression: Abdominal pain, left lower quadrant Additional Instructions: Follow-up close with primary care physician. Tylenol or Motrin for pain. Return for any emergent medical conditions. Med/Other Pt SpecificInfo: No Change to Meds Disposition: 01 DISCHARGE HOME Condition: Stable Enmanuel Higgins Mar 07, 2017 12:30
--- NOTE | 2017-03-07 13:03 | PD ---
Physical Exam Date Seen by Provider: Mar 07, 2017 Time Seen by Provider: 13:00 Narrative Patient presents with left lower quadrant pain Data Data Last Documented VS Vital Signs Date Time Temp Pulse Resp B/P (MAP) Pulse Ox O2 Delivery O2 Flow Rate FiO2 03/07/17 12:50 17 03/07/17 12:08 97.9 70 170/81 (110) 99 Room Air Orders Orders Complete Blood Count With Diff (03/07/17 12:28) Comprehensive Metabolic Panel (03/07/17 12:28) Lipase (03/07/17 12:28) Urinalysis - C+S If Indicated (03/07/17 12:28) Ct Abd/Pel W Iv Contrast(Rout) (03/07/17 12:28) Iv Access Insert/Monitor (03/07/17 12:28) Ketorolac Inj (Toradol Inj) (03/07/17 12:30) MDM Supervised Visit with SEAN: Yes Narrative Course I, Dr. Lozoya, have reviewed the advance practice practitioner's documentation and am in agreement, met with the patient face to face, made the diagnosis, and the medical decision making was done by me. *My assessment and Findings: Patient is awake and alert and sitting on the side of the bed as the nurse is starting her IV. She does not appear to be in any acute distress. She is hemodynamically stable. Please see Enmanuel Higgins PA-C's note for results of laboratory and radiographic evaluation, ED course, final diagnosis and disposition Irais Lozoya MD Mar 07, 2017 13:03
[2017-03-07] MEDS ORDERED: IOHEXOL 350 MG/ML 10 ML VIAL (for RAD DIAG) IVCONTRAST ONE (13:19)
[2017-03-07 13:21] LABS: AUTOMATED NEUTROPHIL # 3.1 TH/MM3 (1.8-7.7); BASOPHIL % 0.6 % (0.0-2.0); BLOOD, URINE NEG (NEG); EOSINOPHIL # 0.4 TH/MM3 (0-0.4); EOSINOPHIL % 7.5 % (0.0-4.0); GLUCOSE,URINE NEG (NEG); HEMATOCRIT 40.8 % (35.0-46.0); HEMO FLAGS DIFF FINAL; KETONE, URINE NEG (NEG); LYMPH % 29.7 % (9.0-44.0); LYMPHOCYTE # 1.7 TH/MM3 (1.0-4.8); MEAN CELL VOLUME 94.7 FL (80.0-100.0); MEAN CORPUSCULAR HEMOGLOBIN 32.7 PG (27.0-34.0); MEAN CORPUSCULAR HGB CONC 34.5 % (32.0-36.0); MONO % 8.9 % (0.0-8.0); NEUT % 53.3 % (16.0-70.0); NITRITE,URINE NEG (NEG); PLATELET COUNT 282 TH/MM3 (150-450); RED BLOOD COUNT 4.31 MIL/MM3 (4.00-5.30); RED CELL DISTRIBUTION WIDTH 13.1 % (11.6-17.2); URINE COLOR YELLOW (YELLW/STRAW); WHITE BLOOD COUNT 5.8 TH/MM3 (4.0-11.0)
--- NOTE | 2017-03-07 13:29 | RADRPT ---
EXAM DATE/TIME: 03/07/2017 13:01 [facility] COMPARISON: No previous studies available for comparison. INDICATIONS : Left lower quadrant pain. IV CONTRAST: 100 cc Omnipaque 350 (iohexol) IV ORAL CONTRAST: No oral contrast ingested. RADIATION DOSE: 6.67 CTDIvol (mGy) MEDICAL HISTORY : Cardiovascular disease. Hernia, hiatal. SURGICAL HISTORY : Hysterectomy. ENCOUNTER: Initial ACUITY: 1 day PAIN SCALE: 7/10 LOCATION: Left lower quadrant TECHNIQUE: Volumetric scanning of the abdomen and pelvis was performed. Using automated exposure control and ad justment of the mA and/or kV according to patient size, radiation dose was kept as low as reasonably achievable to obtain optimal diagnostic quality images. DICOM format image data is available electro nically for review and comparison. FINDINGS: Lung bases are clear. No pleural or pericardial effusions. Liver, gallbladder, kidneys, spleen, pancr eas, adrenal glands, stomach unremarkable. Small fat containing umbilical hernia. Urinary bladder is unremarkable. The patient is status post hysterectomy. There are no signs of bowel obstruction, free fluid, or free air. A few scattered diverticuli are noted without diverticulitis. The ovaries are nor mal. Appendix normal. No adenopathy or aneurysm. A few scattered atherosclerotic calcifications are i dentified. Osseous structures are intact. CONCLUSION: Diverticulosis. Mild atherosclerosis. Small fat containing umbilical hernia. Logan Garcia MD on March 07, 2017 at 13:26 Board Certified Radiologist. This report was verified electronically.
[2017-03-07 13:31] LABS: ALT (GPT) 27 U/L (10-53); ANION GAP 6 MEQ/L (5-15); AST (GOT) 20 U/L (15-37); BICARBONATE 30.2 MEQ/L (21.0-32.0); BLOOD UREA NITROGEN 14 MG/DL (7-18); CHLORIDE 104 MEQ/L (98-107); GLOMERULAR FILTRATION RATE 85 ML/MIN (>89); POTASSIUM 4.1 MEQ/L (3.5-5.1); SODIUM (NA) 140 MEQ/L (136-145)
[2017-03-07 13:33] LABS: ALKALINE PHOSPHATASE 84 U/L (45-117); TOTAL BILIRUBIN ADULT 0.2 MG/DL (0.2-1.0)
[2017-03-07 13:44] LABS: RBC, URINE 0-3 /hpf (0-3); SQUAMOUS EPITHELIAL CELL URINE 0-5 /hpf (0-5)
[2017-03-07 13:45] LABS: COMMENT (UR) CULT NOT INDICATED; CULTURE IF INDICATED CULT NOT INDICATED
[2017-03-07 13:50] VITALS: RESP 16
[2017-03-07 14:10] VITALS: BP 124/83; TEMP 97.8
== END 2017-03-07 14:10 | disposition home or self-care (01) ==
LOC: NEPC 12:06
DX: R10.32 Left lower quadrant pain (principal); J45.909 Unspecified asthma, uncomplicated; I10 Essential (primary) hypertension; E03.9 Hypothyroidism, unspecified; Z72.0 Tobacco use
CPT/HCPCS: 74177; 80053; 81001; 83690; 85025; 96374; 99285; J1885; Q9967